=== PATIENT | male | born 1970 | race Caucasian/White ===

== ENCOUNTER 2017-09-10 09:05 | Emergency (ER) | payer OTHER ==
[~2017-09-10] VITALS: Ht 167.6 cm; Wt 87.6 kg
[~2017-09-10 09:05] MED LIST: ALLO300T2 PO; COLC0.6T6 PO; HYDR-906 PO; INDO25CA25 PO
[2017-09-10 09:07] VITALS: Ht 167.6 cm; Wt 87.6 kg
[2017-09-10] MEDS ORDERED: KETOROLAC 30 MG INJ IM STA (09:28)
[2017-09-10] MEDS ORDERED: ONDANSETRON (ODT) 4 MG TAB ODT STA (09:28)
[2017-09-10] MEDS ORDERED: morphine 4 MG/ML VIAL IM STA (09:28)
--- NOTE | 2017-09-10 10:48 | ERD ---
ER Documentation Chief Complaint Chief Complaint pt bib family with left knee pain for a few days, hx gout HPI 47-year-old male with a history of gout presents with left-sided knee pain ongoing for approximately a week. The patient reports that he was seen at [facility] was prescribed Anatone as well as prednisone. He is not taking any other medications for this and this has continued to have pain. He denies trauma, fevers, chills. His pain is diffuse in the left knee, with suprapatellar swelling, he has not had any redness, drainage. ROS All systems reviewed and are negative except as per history of present illness. Medications Home Meds Active Scripts Hydrocodone/Acetaminophen (Anatone 10-325 Tablet) 1 Each Tablet, 1 EACH PO Q6, # 10 TAB Prov:RADHA LEUNG PA-C 09/10/17 Colchicine* (Colcrys*) 0.6 Mg Tablet, 0.6 MG PO BID, #6 TAB Prov:RADHA LEUNG PA-C 09/10/17 Indomethacin* (Indocin*) 25 Mg Capsule, 25 MG PO Q6, #30 CAP Prov:CHIDI BETANCOURT MD 07/29/16 Hydrocodone/Acetaminophen (Anatone 5-325 Tablet) 1 Each Tablet, 1 TAB PO Q6H Y for PAIN, #10 TAB Prov:CHIDI BETANCOURT MD 07/29/16 Colchicine* (Colcrys*) 0.6 Mg Tablet, 0.6 MG PO BID for 3 Days, #6 TAB Prov:CHIDI BETANCOURT MD 07/29/16 Allopurinol* (Allopurinol*) 300 Mg Tablet, 300 MG PO DAILY, #30 TAB Prov:CHIDI BETANCOURT MD 07/29/16 Allergies Allergies: Coded Allergies: No Known Allergy (Unverified , 09/10/17) PMhx/Soc History of Surgery: Yes (hernia) Anesthesia Reaction: No Hx Neurological Disorder: No Hx Respiratory Disorders: No Hx Cardiac Disorders: No Hx Psychiatric Problems: No Hx Miscellaneous Medical Probl: Yes (gout) Hx Alcohol Use: No Hx Substance Use: No Hx Tobacco Use: Yes Smoking Status: Current every day smoker Physical Exam Vitals Vital Signs Date Time Temp Pulse Resp B/P Pulse Ox O2 Delivery O2 Flow Rate FiO2 09/10/17 09:07 98.3 106 18 126/82 98 Physical Exam General: Well-developed, well-nourished. The patient appears in no acute distress. HEENT: Head is normocephalic, atraumatic. No scleral icterus. Neck: Supple. Nontender. Lungs: Clear to auscultation. Normal air movement. Heart: Regular rate and rhythm. S1 and S2 are normal. No murmurs, gallops, or rubs. Abdomen: Nondistended. Extremities: Suprapatellar swelling on the left knee, the patient has his left knee flexed and resting position. There is no warmth, no erythema, no rashes. No bony deformities. Negative Homans sign, there is no calf swelling. Dorsalis pedis pulses 2+ bilaterally. There is no lymphatic streaking. Neurologic: Alert and oriented 3. No focal deficits. Normal speech and gait. Skin: Normal turgor. No rash or lesions. Results 24 hrs Current Medications Medications (Trade) Dose Ordered Sig/Dell Route PRN Reason Start Time Stop Time Status Last Admin Dose Admin Ketorolac Tromethamine (Toradol) 30 mg ONCE STAT IM 09/10/17 09:28 09/10/17 09:30 DC 09/10/17 09:37 Morphine Sulfate (morphine) 4 mg ONCE STAT IM 09/10/17 09:28 09/10/17 09:30 DC 09/10/17 09:36 Ondansetron HCl (Zofran Odt) 4 mg ONCE STAT ODT 09/10/17 09:28 09/10/17 09:30 DC 09/10/17 09:37 Procedures/MDM 47-year-old male presents with left-sided knee pain ongoing for a week, the patient's symptoms were treated in the emergency department here with morphine as well as Toradol he has significant improvement of his pain. The patient has good range of motion to the knee, there are no bony deformities and he does have suprapatellar swelling is likely inflammatory rather than infectious. There are no signs of septic joint, fracture, dislocation, DVT. He was previously treated with prednisone as well as Anatone without any improvement, he does not have any history taking recent NSAIDs. He states that he has been seen here before and it shows that he has taken colchicine with Anatone with improvement of the symptoms. He will be discharged with a short course of Anatone as well as colchicine for acute flare symptoms. Departure Diagnosis: Primary Impression: Gout Condition: Good RADHA LEUNG PA-C Sep 10, 2017 10:48
[2017-09-10] MEDS ORDERED: HYDR-902 PO (10:51)
[2017-09-10] MEDS ORDERED: COLC0.6T6 PO (10:51)
[2017-09-10 11:05] VITALS: BP 122/82; PULSE 78; RESP 18; TEMP 98.2
== END 2017-09-10 11:07 | disposition home or self-care (01) ==
LOC: FTE 09:05
DX: M10.9 Gout, unspecified (principal); F17.210 Nicotine dependence, cigarettes, uncomplicated
CPT/HCPCS: 96372; J1885; J2270; Z7502; Z7610

== ENCOUNTER 2017-09-13 12:44 | Emergency (ER) | payer OTHER ==
[~2017-09-13] VITALS: Wt 88.1 kg
[~2017-09-13 12:44] MED LIST changes: +HYDR-902 PO
--- NOTE | 2017-09-13 15:19 | ERD ---
ER Documentation Chief Complaint Chief Complaint LOW BACK PAIN, ONSET 3 DAYS, NO INJURY HPI 47y/o male patient with history of gout, presents to the emergency department with family members c/o gradual onset of back pain, constant, located in the lower back radiating to the right side, that started 3 days ago. The pain is dull, rated 8/10, The symptoms are probably caused by gout attack and are associated with left knee pain and mild left ankle pain. Aggravating factors: Lateral rotation. Alleviating factors: Partially relieved with Leupp. Denies fever, chills, N/V/D. Treatment attempted: Leupp and colchicine. Previous evaluation: 2 days ago here in the emergency department. History was given by patient. ROS SYSTEMIC symptoms: no fever, chills, no night sweats, no weight loss EYE symptoms: No blurred vision, no eye discharge OTOLARYNGEAL symptoms: No hearing loss. No ear pain, no sore throat CARDIOVASCULAR symptoms: No chest pain or discomfort, no palpitations. PULMONARY symptoms: No dyspnea, no cough, no wheezing. GASTROINTESTINAL symptoms: No abdominal pain, no nausea, no vomiting, no diarrhea MUSCULOSKELETAL symptoms: Per HPI NEUROLOGY symptoms: No confusion, no syncope, no numbness or tingling. SKIN: No rashes Medications Home Meds Active Scripts Prednisone* (Prednisone*) 20 Mg Tab, 40 MG PO DAILY for 4 Days, TAB Prov:ABI DELONG MD 09/13/17 Hydrocodone/Acetaminophen (Leupp 10-325 Tablet) 1 Each Tablet, 1 EACH PO Q6, # 10 TAB Prov:RADHA LEUNG PA-C 09/10/17 Colchicine* (Colcrys*) 0.6 Mg Tablet, 0.6 MG PO BID, #6 TAB Prov:RADHA LEUNG PA-C 09/10/17 Indomethacin* (Indocin*) 25 Mg Capsule, 25 MG PO Q6, #30 CAP Prov:CHIDI BETANCOURT MD 07/29/16 Hydrocodone/Acetaminophen (Leupp 5-325 Tablet) 1 Each Tablet, 1 TAB PO Q6H Y for PAIN, #10 TAB Prov:CHIDI BETANCOURT MD 07/29/16 Colchicine* (Colcrys*) 0.6 Mg Tablet, 0.6 MG PO BID for 3 Days, #6 TAB Prov:CHIDI BETANCOURT MD 07/29/16 Allopurinol* (Allopurinol*) 300 Mg Tablet, 300 MG PO DAILY, #30 TAB Prov:CHIDI BETANCOURT MD 07/29/16 Allergies Allergies: Coded Allergies: No Known Allergy (Unverified , 09/13/17) PMhx/Soc History of Surgery: Yes (hernia) Anesthesia Reaction: No Hx Neurological Disorder: No Hx Respiratory Disorders: No Hx Cardiac Disorders: No Hx Psychiatric Problems: No Hx Miscellaneous Medical Probl: Yes (gout) Hx Alcohol Use: No Hx Substance Use: No Hx Tobacco Use: Yes Physical Exam Vitals Vital Signs Date Time Temp Pulse Resp B/P Pulse Ox O2 Delivery O2 Flow Rate FiO2 09/13/17 12:46 98.3 73 18 127/90 98 Physical Exam Patient is in mild distress due to pain, vital signs stable. Alert and fully oriented. EYES: PERRLA, EOMI, Sclera and conjunctiva appear normal. EARS: Canals clear, tympanic membranes WNL THROAT: Normal oropharynx. NECK: Supple, No lymphadenopathy. Full ROM without pain or tenderness. HEART: RRR, no rubs, murmurs, clicks or gallops. LUNGS: Clear to auscultation. ABDOMEN: Soft, non-tender without masses or hepatosplenomegaly. EXTREMITIES: No edema bilaterally. BACK: Full ROM, no deformity, normal back exam, no vertebral tenderness, no skin changes NEURO: Cranial nerves grossly intact, no motor or sensory deficit Result Diagram: 09/13/17 1615 09/13/17 1615 Results 24 hrs Laboratory Tests Test 09/13/17 16:15 White Blood Count 6.810^3/ul Red Blood Count 5.0310^6/ul Hemoglobin 13.9g/dl Hematocrit 43.4% Mean Corpuscular Volume 86.3fl Mean Corpuscular Hemoglobin 27.6pg Mean Corpuscular Hemoglobin Concent 32.0g/dl Red Cell Distribution Width 13.7% Platelet Count 76165^3/UL Mean Platelet Volume 10.3fl Neutrophils % 47.7% Lymphocytes % 33.4% Monocytes % 12.5% Eosinophils % 3.2% Basophils % 0.6% Nucleated Red Blood Cells % 0.0/100WBC Neutrophils # 3.310^3/ul Lymphocytes # 2.310^3/ul Monocytes # 0.910^3/ul Eosinophils # 0.210^3/ul Basophils # 0.010^3/ul Nucleated Red Blood Cells # 0.010^3/ul Urine Color YELLOW Urine Clarity CLEAR Urine pH 6.0 Urine Specific [place] 1.013 Urine Ketones NEGATIVEmg/dL Urine Nitrite NEGATIVEmg/dL Urine Bilirubin NEGATIVEmg/dL Urine Urobilinogen NEGATIVEmg/dL Urine Leukocyte Esterase NEGATIVELeu/ul Urine Microscopic RBC 0/HPF Urine Microscopic WBC 0/HPF Urine Hemoglobin NEGATIVEmg/dL Urine Glucose NEGATIVEmg/dL Urine Total Protein 2+mg/dl Sodium Level 141mmol/L Potassium Level 4.6mmol/L Chloride Level 101mmol/L Carbon Dioxide Level 28mmol/L Anion Gap 17 Blood Urea Nitrogen 17mg/dl Creatinine 1.16mg/dl Glucose Level 91mg/dl Uric Acid 8.8mg/dl Calcium Level 10.1mg/dl Current Medications Medications (Trade) Dose Ordered Sig/Dell Route PRN Reason Start Time Stop Time Status Last Admin Dose Admin Dexamethasone (Decadron) 10 mg ONCE ONCE IV 09/13/17 16:00 09/13/17 16:01 DC 09/13/17 16:27 Ondansetron HCl (Zofran Odt) 4 mg ONCE STAT ODT 09/13/17 16:24 09/13/17 16:25 DC 09/13/17 16:31 Morphine Sulfate (morphine) 2 mg ONCE STAT IV 09/13/17 16:24 09/13/17 16:25 DC 09/13/17 16:31 Procedures/MDM 47y/o male patient with past medical history of gout, presents to the ED c/o back pain for 2 days. Vital signs stable, Physical exam unremarkable, neurovascular exam intact. Differential diagnosis include but not limited to: Acute musculoskeletal injury, herniated disc, urolithiasis, UTI, arthritis, degenerative disc disease. Low suspicion for vertebral fracture, cauda equina syndrome, psoas abscess.. Pertinent Data: Labs: CBC: normal, CMP: Mildly elevated creatinine, normal liver function, normal electrolytes. Physical examination and clinical presentation consistent most likely with gout arthritis. During the ED course the patient remained stable, no new complaints. The patient received treatment with dexamethasone and morphine presenting overall improvement of the symptoms. Results and clinical impression discussed with patient who agrees with management. The patient is stable to be treated outpatient and will be discharged home with a Rx for prednisone, he needs to continue taking Leupp as needed for pain, some side effects of prescribed medications (headache, rash, nausea, vomiting, diarrhea, drowsiness, habituation, bleeding, hypertension, interactions with other medications) were reviewed. The patient was instructed to follow up with the primary care provider in the next 48h. If symptoms persist, worsen or new symptoms develop, then patient should return to the ED immediately. Instructions explained and given directly by me to the patient in Micronesian with acknowledgment and demonstrated understanding. Disclaimer: Inadvertent spelling and grammatical errors are likely due to EHR/ dictation software use and do not reflect on the overall quality of patient care. Also, please note that the electronic time recorded on this note does not necessarily reflect the actual time of the patient encounter. Departure Diagnosis: Primary Impression: Gouty arthritis Condition: Stable Additional Instructions: Muchas ashlyn por [facility] para murphy servicio. Esperamos que en murphy visita a la theron de emergencia murphy problema medico haya sido solucionado y que se sienta mucho mejor. Para estar seguros que murphy mejoria sigue en proceso, le pedimos el favor de hacer dolores britany de seguimiento medico con murphy doctor primario en los proximos 2-4 camilo. Lleve con usted estos documentos y las medicinas recetadas. Si kendrick sintomas empeoran y no puede rakan a murphy doctor, por favor regrese a theron de emergencia. En ulises que usted no tenga un mdico de atencin primaria: Llame al mdico o clnica comunitaria de referencia que aparece abajo enrique las horas de consultorio para hacer dolores britany para que le vean. CLINICAS: [facility] [phone] [address] [phone] [address] [facility] [phone] [id number] [facility] 277 [phone] [facility]. [facility] 359 [phone] [address] [facility] [phone] ABI ZHANG MD Sep 13, 2017 15:19
[2017-09-13] MEDS ORDERED: DEXAMETHASONE 10 MG/ML 1 ML INJ IV ONE (16:00)
[2017-09-13] MEDS ORDERED: morphine 2 MG INJ IV STA (16:24)
[2017-09-13] MEDS ORDERED: ONDANSETRON (ODT) 4 MG TAB ODT STA (16:24)
[2017-09-13 16:52] LABS: BASOPHILS % 0.6 % (0.0-2.0); EOSINOPHILS # 0.2 10^3/ul (0.0-0.5); EOSINOPHILS % 3.2 % (0.0-7.0); HEMATOCRIT 43.4 % (42.0-52.0); HEMOGLOBIN 13.9 g/dl (14.0-18.0); LYMPHOCYTES # 2.3 10^3/ul (0.8-2.9); LYMPHOCYTES % 33.4 % (15.0-51.0); MEAN CORPUSCULAR HEMOGLOBIN 27.6 pg (29.0-33.0); MEAN CORPUSCULAR VOLUME 86.3 fl (82.0-101.0); MEAN PLATELET VOLUME 10.3 fl (7.4-10.4); MONOCYTE # 0.9 10^3/ul (0.3-0.9); MONOCYTES % 12.5 % (0.0-11.0); NEUTROPHIL # 3.3 10^3/ul (1.6-7.5); NEUTROPHILS % 47.7 % (39.0-77.0); PLATELET COUNT 304 10^3/UL (140-415); RED BLOOD COUNT 5.03 10^6/ul (4.70-6.10); RED CELL DISTRIBUTION WIDTH 13.7 % (11.5-14.5); WHITE BLOOD COUNT 6.8 10^3/ul (4.8-10.8)
[2017-09-13 16:55] LABS: ADD UMIC YES; UR ASCORBIC ACID NEGATIVE (NEGATIVE); UR BILIRUBIN (Dip) NEGATIVE (NEGATIVE); UR BLOOD (Dip) NEGATIVE (NEGATIVE); UR CLARITY CLEAR (CLEAR); UR COLOR YELLOW (YELLOW); UR GLUCOSE (Dip) NEGATIVE (NEGATIVE); UR KETONES (Dip) NEGATIVE (NEGATIVE); UR LEUKOCYTE ESTERASE (Dip) NEGATIVE Leu/ul (NEGATIVE); UR NITRITE (Dip) NEGATIVE (NEGATIVE); UR RBC 0 /HPF (0-5); UR SPECIFIC GRAVITY (Dip) 1.013 (1.003-1.030); UR TOTAL PROTEIN (Dip) 2+ mg/dl (NEGATIVE); UR UROBILINOGEN (Dip) NEGATIVE (NEGATIVE)
[2017-09-13 17:06] LABS: CALCIUM 10.1 mg/dl (8.4-10.2); CREATININE 1.16 mg/dl (0.61-1.24); POTASSIUM 4.6 mmol/L (3.5-5.1); URIC ACID 8.8 mg/dl (3.1-7.9)
[2017-09-13] MEDS ORDERED: PRED20TA PO (18:48)
[2017-09-13 19:26] VITALS: BP 140/92; PULSE 68; RESP 16; TEMP 98.3
== END 2017-09-13 19:27 | disposition home or self-care (01) ==
LOC: FTE 12:44
DX: M10.9 Gout, unspecified (principal)
CPT/HCPCS: 80048; 81001; 84560; 85025; 96374; 96375; J1100; J2270; Z7502; Z7610

== ENCOUNTER 2018-07-15 14:33 | Inpatient (IN) | END 2018-07-19 14:40 | disposition home or self-care (01) | DRG 378 ==

== ENCOUNTER 2018-07-25 16:45 | Inpatient (IN) | END 2018-07-28 14:20 | disposition home or self-care (01) | DRG 378 ==